=== PATIENT | female | born 1965 | race Caucasian/White ===

== ENCOUNTER 2017-10-20 13:06 | Outpatient (CLI) | payer OTHER | END 2017-10-20 13:11 | disposition home or self-care (01) | LOC: RAD 13:06 | DX: R07.81 Pleurodynia (principal) ==

== ENCOUNTER 2018-08-13 18:26 | Outpatient (CLI) | payer OTHER | END 2018-08-13 19:00 | disposition home or self-care (01) | LOC: RAD 18:26 | DX: M54.12 Radiculopathy, cervical region (principal) ==

== ENCOUNTER → 2019-08-09 | Emergency (ER) | payer OTHER ==
[~2019-08-09] VITALS: Ht 165.1 cm; Wt 92.5 kg
[~2019-08-09] MED LIST: FLONASE16 GM
== END | disposition left against medical advice (07) ==
LOC: ER 10:36
DX: R10.84 Generalized abdominal pain (principal)

== ENCOUNTER 2019-08-11 07:16 | Outpatient (CLI) | payer OTHER | END 2019-08-11 07:18 | disposition home or self-care (01) | LOC: SONOGRAMA 07:16 | DX: K76.0 Fatty (change of) liver, not elsewhere classified (principal) ==

== ENCOUNTER 2023-03-30 06:22 | Outpatient (CLI) | payer OTHER | END 2023-03-30 06:40 | disposition home or self-care (01) | LOC: LAB 06:22 | PROVIDERS: ATTEND Orthopaedic Surgery Orthopaedic Trauma | DX: Z01.812 Encounter for preprocedural laboratory examination (principal); Z01.818 Encounter for other preprocedural examination; M25.561 Pain in right knee; M25.562 Pain in left knee; M17.0 Bilateral primary osteoarthritis of knee; Z47.1 Aftercare following joint replacement surgery; Z96.652 Presence of left artificial knee joint ==

== ENCOUNTER 2023-04-20 06:35 | Outpatient (CLI) | payer OTHER | END 2023-04-20 06:37 | disposition home or self-care (01) | LOC: LAB 06:35 | PROVIDERS: ATTEND Orthopaedic Surgery Orthopaedic Trauma | DX: Z01.812 Encounter for preprocedural laboratory examination (principal) ==